=== PATIENT | male | born 1985 | race Native Hawaiian/Other Pacific Islander ===

== ENCOUNTER 2018-09-29 11:51 | Day surgery (SDC) | payer MEDICARE, OTHER ==
[2018-09-23 12:02] VITALS: BMI 30.9
[2018-09-29 12:46] VITALS: TEMP 98.4
[2018-09-29] MEDS ORDERED: LIDOCAINE 1% 20 ML VIAL (10MG/ML) FOR IV START INTRADERMA ONE (12:56)
[2018-09-29] MEDS ORDERED: LACTATED RINGERS 1,000 ML IV ONE (12:56)
[2018-09-29] MEDS ORDERED: PROPOFOL 10 MG/ML 20 ML VIAL IV ONE (13:41)
[2018-09-29 14:18] VITALS: PULSE 64; RESP 18
--- NOTE | 2018-09-29 14:21 | P.PCN ---
Date of Procedure: 09/29/18 Procedure(s) Performed: Procedures: 1. Esophagogastroduodenoscopy and biopsy. 2. Colonoscopy and biopsy. Preoperative diagnosis: Reflux symptoms and change in bowel habits. Postoperative diagnosis: 1. Small sliding hiatal hernia with no obvious esophagitis or complicated reflux disease. 2. Mild antral gastritis. 3. Normal colon and terminal ileum. 4. Multiple biopsies obtained from the duodenum, antrum, esophagus, terminal ileum and right colon. Preparation: HalfLytely prep. Sedation: Was provided by anesthesia. Brief clinical history: The patient is a 33-year-old male who is scheduled for this evaluation for the above reasons. He has been experiencing loose stools for the last year or 2 as well as abdominal pain and reflux symptoms but no other alarm symptoms. Procedure: With the patient on his left lateral decubitus position and after informed consent and adequate sedation, I passed a Olympus-GIF 05/04/1990 video upper endoscope through the cricopharyngeus down the esophagus. There was a small sliding hiatal hernia but no obvious esophagitis or complicated reflux disease. The endoscope was then passed into the stomach which was insufflated with air and inspected in detail including the retroflex view in the cardia. There was some mottling and erythema in the antrum but no ulcers or erosions. Pyloric channel, duodenal bulb, post bulbar area and descending duodenum appeared within normal limits. I obtained multiple biopsies from the duodenum, antrum and esophagus then the endoscope was withdrawn and I proceeded with the colonoscopy. Perianal area did not show any fissures or fistulas. There were no masses felt on digital rectal examination. The Olympus CFH 190L video colonoscope was then inserted in the rectum in the usual fashion and advanced to the cecum. I intubated the ileocecal valve and examined the terminal ileum. Terminal ileum and colon appeared healthy with no evidence of edema, erythema, friability, ulceration, exudation or spontaneous bleeding. No polyps or tumors were seen or any obvious diverticular disease. I obtained biopsies from the terminal ileum and right colon then I retroflexed the endoscope in the rectum before the endoscope was withdrawn. The patient tolerated the procedure well. Plan: The patient was reassured. Will await biopsy results and make further plans based on his course and biopsy results. We will keep you updated on his progress.
[2018-09-29 14:32] VITALS: BP 131/70
== END 2018-09-29 14:47 | disposition home or self-care (01) ==
LOC: ORWHC2ENDO 11:51
DX: K29.50 Unspecified chronic gastritis without bleeding (principal); K21.0 Gastro-esophageal reflux disease with esophagitis; K44.9 Diaphragmatic hernia without obstruction or gangrene; F17.200 Nicotine dependence, unspecified, uncomplicated; R59.9 Enlarged lymph nodes, unspecified; R19.4 Change in bowel habit; Z79.899 Other long term (current) drug therapy; Z88.5 Allergy status to narcotic agent; Z88.8 Allergy status to other drugs, medicaments and biological substances
CPT/HCPCS: 43239; 45380; 88305